=== PATIENT | male | born 1995 | race Caucasian/White ===

== ENCOUNTER → 2016-06-13 | Outpatient (CLI) | payer OTHER ==
--- NOTE | 2016-06-13 15:17 | REP ---
DIGITAL DIAGNOSTIC BILATERAL MAMMOGRAPHY WITH CAD AND FOCUSED BILATERAL SONOGRAPHY: HISTORY: Left breast lump and enlargement associated with tenderness over the last two months. MAMMOGRAPHIC FINDINGS: There is some scattered heterogeneous fibroglandular breast density in the subareolar zone in a band-like pattern of the left breast. Minimal similar changes are noted in the subareolar zone on the right. The pattern is compatible with gynecomastia. No focal mass, architectural distortion, or suspicious microcalcification is seen. No worrisome skin change is appreciated. SONOGRAPHIC FINDINGS: Bilateral subareolar focused breast sonography demonstrates some heterogeneous fibroglandular elements in the subareolar zones bilaterally, left greater than right consistent with gynecomastia. No sonographic evidence of mass or cyst. IMPRESSION: BIRADS category 2 benign bilateral breast imaging. Gynecomastia pattern, left greater than right. Clinical followup is advised. This negative report should not dissuade one from biopsy of a palpable lump depending on its clinical characteristics. BI-RADS/ACR category 2 mammogram. Benign finding(s). Routine annual screening mammography (for women over age 40). This mammogram was interpreted with the aid of an FDA-approved computer-aided detection system. The patient states he had a clinical breast exam in March 2016 . The patient letter being requested is male M2. Signed by Saulo Hickman MD 06/13/2016 04:32 P
== END | disposition home or self-care (01) ==
LOC: M RAD 13:36
PROVIDERS: ATTEND Physician Assistant
DX: N62 Hypertrophy of breast (principal)
CPT/HCPCS: 76642; G0204